=== PATIENT | female | born 1990 | race Caucasian/White ===

== ENCOUNTER 2019-07-02 02:27 | Emergency (ER) | payer OTHER ==
[~2019-07-02] VITALS: Ht 160 cm; Wt 102.3 kg
[2019-07-02 02:32] VITALS: TEMP 97.2
[2019-07-02] MEDS ORDERED: LO LOESTRIN FE1 TAB PO (02:36)
[2019-07-02] MEDS ORDERED: WELLBUTRIN 100100 MG PO (02:36)
[2019-07-02] MEDS ORDERED: GLUCOPHAGE500 MG/TAB PO (02:36)
[2019-07-02 03:07] LABS: COLLECTION METHOD CLEAN CATCH
[2019-07-02 03:09] LABS: BASO % 0.3 % (0.0-2.0); EOS # 0.1 (0.0-0.7); EOS % 0.4 % (0-4.0); GRAN # 7.1 (1.4-6.5); GRAN % 63.1 % (42.2-75.2); HEMATOCRIT 44.1 % (37.0-47.0); HEMOGLOBIN 14.6 g/dl (12.5-16.0); LYMPH # 3.3 (1.2-3.4); LYMPH % 29.1 % (20.0-51.0); MEAN CELL VOLUME 88 fl (80.0-100.0); MEAN CORPUSCULAR HEMOGLOBIN 29 pg (27.0-31.0); MEAN CORPUSCULAR HGB CONC 33 g/dl (33.0-37.0); MEAN PLATELET VOLUME 9.8 fl (7.4-10.4); MONO # 0.8 (0.1-0.6); MONO % 6.7 % (1.7-9.3); PLATELET COUNT 366 K/mm3 (130-400); RED BLOOD COUNT 5.01 M/mm3 (4.10-5.30); REDCELL DISTRIBUTION WIDTH-CV 12.3 % (11.5-14.5)
[2019-07-02 03:16] LABS: AMORPHOUS CRYSTAL Present /uL; MUCOUS Present /lpf; PH 6 (5-8); SQUAMOUS EPITHELIAL 0-2 /hpf; URINE APPEARANCE Hazy; URINE BACTERIA Rare /hpf; URINE BILIRUBIN Negative (NEGATIVE); URINE BLOOD 1+ (NEGATIVE); URINE COLOR Yellow; URINE GLUCOSE Negative (NEGATIVE); URINE KETONE Negative (NEGATIVE); URINE LEUKOCYTE ESTERASE Negative (NEGATIVE); URINE NITRATE Negative (NEGATIVE); URINE PROTEIN(semi-quant) Negative (NEGATIVE); URINE UROBILINOGEN Negative (NEGATIVE)
[2019-07-02 03:23] LABS: ALBUMIN 4.6 gm/dL (3.5-5.0); BILIRUBIN,TOTAL 0.7 mg/dL (0.0-1.0); C-REACTIVE PROTEIN 2.5 mg/dL (0.0-0.9); CALCIUM 9.9 mg/dL (8.4-10.2); CREATININE, serum 0.68 (0.52-1.25); POTASSIUM 3.9 mmol/L (3.4-5.0); TOTAL PROTEIN 8.3 gm/dL (6.4-8.2)
[2019-07-02] MEDS ORDERED: CARAFATE 1GM1 G PO (04:09)
[2019-07-02] MEDS ORDERED: ZOFRAN ODT4 MG PO (04:09)
[2019-07-02] MEDS ORDERED: PROTONIX 40MG T40 MG PO (04:09)
[2019-07-02 04:31] VITALS: BP 106/71; PULSE 85
== END 2019-07-02 04:31 | disposition home or self-care (01) ==
LOC: COL.ER 02:27
PROVIDERS: Emergency Medicine
DX: K29.70 Gastritis, unspecified, without bleeding (principal); E28.2 Polycystic ovarian syndrome; Z79.84 Long term (current) use of oral hypoglycemic drugs
CPT/HCPCS: C9113; J2550; J7030

== ENCOUNTER 2020-07-24 19:51 | Observation (INO) | payer BC, OTHER ==
[~2020-07-24] VITALS: Ht 160 cm; Wt 106.8 kg
[~2020-07-24 19:51] MED LIST: CARAFATE 1GM1 G PO; GLUCOPHAGE500 MG/TAB PO; LO LOESTRIN FE1 TAB PO; PROTONIX 40MG T40 MG PO; WELLBUTRIN 100100 MG PO; ZOFRAN ODT4 MG PO
[2020-07-24 20:38] LABS: BASO % 0.3 % (0.0-2.0); EOS # 0.1 (0.0-0.7); EOS % 1.2 % (0-4.0); GRAN # 6.3 (1.4-6.5); GRAN % 70.3 % (42.2-75.2); HEMATOCRIT 44.3 % (37.0-47.0); HEMOGLOBIN 14.5 g/dl (12.5-16.0); LYMPH # 1.8 (1.2-3.4); LYMPH % 19.8 % (20.0-51.0); MEAN CELL VOLUME 88 fl (80.0-100.0); MEAN CORPUSCULAR HEMOGLOBIN 29 pg (27.0-31.0); MEAN CORPUSCULAR HGB CONC 33 g/dl (33.0-37.0); MEAN PLATELET VOLUME 9.7 fl (7.4-10.4); MONO # 0.7 (0.1-0.6); MONO % 8.2 % (1.7-9.3); PLATELET COUNT 351 K/mm3 (130-400); RED BLOOD COUNT 5.04 M/mm3 (4.10-5.30); REDCELL DISTRIBUTION WIDTH-CV 12.4 % (11.5-14.5)
[2020-07-24 21:09] LABS: ALBUMIN 4.3 gm/dL (3.5-5.0); BILIRUBIN,TOTAL 0.6 mg/dL (0.0-1.0); CALCIUM 9.2 mg/dL (8.4-10.2); CREATININE, serum 0.62 (0.52-1.25); POTASSIUM 4.1 mmol/L (3.4-5.0); TOTAL PROTEIN 8.1 gm/dL (6.4-8.2)
[2020-07-25] VITALS (12 sets, daily range): BP systolic 106–128; BP diastolic 58–80; PULSE 69–102; TEMP 97.8–98.8
--- NOTE | 2020-07-25 00:20 | NUR ---
RECEIVED REPORT FOR PATIENT COMING FROM ED.
--- NOTE | 2020-07-25 00:40 | NUR ---
PATIENT RECEIVED FROM ED. VSS. WITH PATIENT. ALERT AND ORIENTED. COMPLAINTS OF PAIN AND TEARFUL. IV IN PLACE. PAIN MEDS, ANTIEMETIC GIVEN AND FLUIDS STARTED AT 125/HOUR. ADMISSION, MED REC, PHYSICAL ASSESSMENT, PHARMACY AND ALLERGIES VARIFIED AND COMPLETED. PATIENT SEEMS TO BE RESPONDING WELL TO PAIN MEDS AND ANTIEMETIC. ORIENTED TO ROOM AND VISITING HOURS. HELPED TO ED EXIT.
[2020-07-25] MEDS ORDERED: CLARITIN 1010 MG/TAB PO (00:41)
--- NOTE | 2020-07-25 12:48 | NUR ---
First visit from the entry level chemist. No needs right now.
--- NOTE | 2020-07-25 13:47 | NUR ---
Patient is going down to surgery at this time. She voided before leaving the floor. Consent signed and on the chart. She showered and brushed her teeth this morning. IVF's infusing as ordered. She had one does of ativan this morning for anxiety. Denies nausea at this time. Minimal complaints of pain. No other changes at this time. Patients is with patient.
[2020-07-25] MEDS ORDERED: ULTRAM 50MG TAB50 MG PO (15:30)
--- NOTE | 2020-07-25 16:00 | NUR ---
Patient is back from surgery. Denies nausea at this time. Rating pain at 1-2 on a 0-10 scale. Explained the plan for discharge. She verbalized understanding. Her is at bedside. She is tolerating ice water at this time. Explained that she needs to eat, walk and void before meeting criteria to discharge home. No other changes at this time. Call light within reach.
--- NOTE | 2020-07-25 19:00 | NUR ---
Gave patient tramadol for pain. Helped her to the bathroom. She at supper without issues. No complaints of nausea. She is resting comfortably in bed at this time. Her picked up her pain medications at the pharmacy. No other changes at this time. Call light within reach. Her follow up appointment has been scheduled.
--- NOTE | 2020-07-25 21:00 | NUR ---
Patient had received PRN Ultram on previous shift, which did not help much with pain. Complained of level 8 pain with movement to abdomen. Given PRN Morphine at 1954. Around 2029, patient stated that medication was effective, and was wanting to discharge. This nurse went over education with patiend and . Voices no questions, needs, or concerns. Lap sites CDI. Patient's IV to left AC taken out. Patient changed and assisted out via wheelchair, accompanied by staff member and .
== END 2020-07-25 21:00 | disposition home or self-care (01) ==
LOC: COL.ER 19:51 → SURG 22:36
PROVIDERS: Emergency Medicine; ADMIT Surgery
DX: K80.10 Calculus of gallbladder with chronic cholecystitis without obstruction (principal); K21.9 Gastro-esophageal reflux disease without esophagitis; F32.9 Major depressive disorder, single episode, unspecified; G43.909 Migraine, unspecified, not intractable, without status migrainosus; E66.9 Obesity, unspecified; E28.2 Polycystic ovarian syndrome; F41.9 Anxiety disorder, unspecified; Z79.899 Other long term (current) drug therapy
CPT/HCPCS: G0378; J0696; J1100; J1885; J2060; J2250; J2270; J2405; J2704; J3010; J7030; J7120; Q9967